=== PATIENT | female | born 1945 | race Two or more races ===

== ENCOUNTER 2022-01-29 12:36 | Emergency (ER) | payer OTHER ==
[~2022-01-29] VITALS: Ht 157.5 cm; Wt 56.7 kg
[2022-01-29 12:44] VITALS: BP 113/63
[2022-01-29] MEDS ORDERED: cefTRIAXone 1GM/50ML D5W 50 ML IV ONE (14:00)
[2022-01-29] MEDS ORDERED: PROM1SOL4 PO (14:16)
[2022-01-29] MEDS ORDERED: AZIT250T8 PO (14:16)
== END 2022-01-29 14:26 | disposition home or self-care (01) ==
LOC: ER 12:36
DX: U07.1 COVID-19 (principal); S61.452A Open bite of left hand, initial encounter; I89.1 Lymphangitis; Z88.0 Allergy status to penicillin; W55.01XA Bitten by cat, initial encounter; Y93.89 Activity, other specified; Y92.89 Other specified places as the place of occurrence of the external cause; Y99.8 Other external cause status
CPT/HCPCS: 71045; 96365; 99284; J0696

== ENCOUNTER 2022-01-30 12:52 | Emergency (ER) | payer OTHER ==
[~2022-01-30] VITALS: Ht 157.5 cm; Wt 56.7 kg
[~2022-01-30 12:52] MED LIST: AZIT250T8 PO; PROM1SOL4 PO
[2022-01-30 13:04] VITALS: BP 136/49
[2022-01-30] MEDS ORDERED: cefTRIAXone 1GM/50ML D5W 50 ML IV ONE (13:30)
== END 2022-01-30 14:03 | disposition home or self-care (01) ==
LOC: ER 12:52
DX: S61.452D Open bite of left hand, subsequent encounter (principal); I89.1 Lymphangitis; I10 Essential (primary) hypertension; Z79.2 Long term (current) use of antibiotics; Z79.899 Other long term (current) drug therapy; Z88.0 Allergy status to penicillin; W55.01XD Bitten by cat, subsequent encounter
CPT/HCPCS: 96365; 99284; J0696

== ENCOUNTER 2022-01-31 12:08 | Emergency (ER) | payer OTHER ==
[~2022-01-31] VITALS: Ht 157.5 cm; Wt 56.7 kg
[2022-01-31 12:15] VITALS: BP 132/62
== END 2022-01-31 13:31 | disposition left against medical advice (07) ==
LOC: ER 12:08
DX: Z48.00 Encounter for change or removal of nonsurgical wound dressing (principal); Z53.21 Procedure and treatment not carried out due to patient leaving prior to being seen by health care provider